=== PATIENT | male | born 1990 | race American Indian/Alaskan Native ===

== ENCOUNTER 2016-07-16 02:43 | Emergency (ER) | payer SELFPAY ==
[2016-07-16 02:52] VITALS: RESP 16
[2016-07-16] MEDS ORDERED: Oxycodone/Acetaminophen 5/325 mg Tab ONE (03:28)
[2016-07-16] MEDS ORDERED: Oxycodone/Acetaminophen 5/325 mg Tab PO STA (03:33)
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
[2016-07-16 06:03] VITALS: BP 122/78; PULSE 92; TEMP 98.3; O2SAT 98
--- NOTE | 2016-07-16 12:32 | RAD ---
PROCEDURE: Radiographs of the Right Forearm HISTORY: Injury COMPARISON: None available. TECHNIQUE: Frontal and lateral views obtained. FINDINGS: BONES: Bone alignment and mineralization are normal. There is no acute fracture or bone destruction JOINT SPACES: Unremarkable. OTHER FINDINGS: None. IMPRESSION: No acute fracture or dislocation.
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
--- NOTE | 2016-07-16 12:34 | RAD ---
PROCEDURE: Right Wrist Radiographs. HISTORY: WRIST PAIN COMPARISON: None. FINDINGS: BONES: Bone alignment and mineralization are normal. The proximal and distal carpal rows are maintained. There is no acute fracture or bone destruction. JOINTS: Normal. SOFT TISSUES: Normal. OTHER FINDINGS: None. IMPRESSION: Normal examination.
== END 2016-07-16 06:03 | disposition home or self-care (01) ==
LOC: H.ER 02:43
DX: S69.91XA Unspecified injury of right wrist, hand and finger(s), initial encounter (principal); Y04.0XXA Assault by unarmed brawl or fight, initial encounter; Y92.89 Other specified places as the place of occurrence of the external cause

== ENCOUNTER 2016-12-19 04:46 | Emergency (ER) | payer MEDICAID ==
[2016-12-19 05:29] VITALS: BMI 32.9
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
[2016-12-19 05:39] VITALS: TEMP 98.1
--- NOTE | 2016-12-19 07:22 | ED PDOC ---
- ECG O2 Sat by Pulse Oximetry: 98 Medical Decision Making Medical Decision Makin:00 Patient signed over to me by Dr. Lincoln Wolfe MD pending X-Ray sending to [facility]. Scribe Attestation: Documented by Tania Ribeiro, acting as a scribe for Patricia Trevino MD. Provider Scribe Attestation: All medical record entries made by the Scribe were at my direction and personally dictated by me. I have reviewed the chart and agree that the record accurately reflects my personal performance of the history, physical exam, medical decision making, and the department course for this patient. I have also personally directed, reviewed, and agree with the discharge instructions and disposition. x-rays read radiologist. no acute fracture. will discharge Disposition Doctor Will See Patient In The: Office Counseled Patient/Family Regarding: Diagnosis, Need For Followup - Clinical Impression Clinical Impression: Upper extremity injury - POA Present On Arrival: Falls Or Trauma - Disposition Referrals: [facility] [Outside] Disposition: Routine/Home Disposition Time: 08:25 Condition: STABLE Instructions: Contusion in Adults (ED) Forms: [employer] (Arabic)
[2016-12-19 07:30] VITALS: BP 133/64; PULSE 64; RESP 18
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
[2016-12-19 08:37] VITALS: O2SAT 98
== END 2016-12-19 08:43 | disposition home or self-care (01) ==
LOC: H.ER 04:46
DX: S59.912A Unspecified injury of left forearm, initial encounter (principal); Y04.0XXA Assault by unarmed brawl or fight, initial encounter; Y92.89 Other specified places as the place of occurrence of the external cause

== ENCOUNTER 2017-04-16 04:03 | Emergency (ER) | payer MEDICAID ==
[2017-04-16 04:34] VITALS: BMI 30.9
[2017-04-16 04:36] VITALS: BP 135/75; PULSE 106; RESP 16; TEMP 98.3; O2SAT 97
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
--- NOTE | 2017-04-16 09:45 | RAD ---
PROCEDURE: Right Hand Radiographs. HISTORY: pain COMPARISON: Right hand radiographs dated 12/19/2016. FINDINGS: BONES: No acute fracture. JOINTS: Unremarkable. SOFT TISSUES: Normal. OTHER FINDINGS: None. IMPRESSION: No demonstrated fracture dislocation.
== END 2017-04-16 06:48 | disposition home or self-care (01) ==
LOC: H.ER 04:03
DX: S63.614A Unspecified sprain of right ring finger, initial encounter (principal); Y04.0XXA Assault by unarmed brawl or fight, initial encounter; Y92.89 Other specified places as the place of occurrence of the external cause

== ENCOUNTER 2017-07-25 10:00 | Emergency (ER) | payer MEDICAID, OTHER ==
[2017-07-25 10:09] VITALS: BMI 25.8
[2017-07-25 10:10] VITALS: RESP 20; O2SAT 98
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
[2017-07-25] MEDS ORDERED: Tdap Vaccine 0.5 ml Vial (10-64 yrs) IM ONE ×2 (11:29→11:50)
--- NOTE | 2017-07-25 11:44 | RAD ---
PROCEDURE: Right Hand Radiographs. HISTORY: Right hand injury COMPARISON: 04/16/2017 FINDINGS: BONES: No acute fracture. Findings suggest healed 5th metacarpal fracture. JOINTS: Normal. No osteoarthritic changes. SOFT TISSUES: Normal. OTHER FINDINGS: None. IMPRESSION: No acute findings related to/accounting for the clinical presentation. No significant interval change compared to the prior examination(s).
[2017-07-25 12:57] VITALS: BP 120/76; PULSE 78; TEMP 98
== END 2017-07-25 12:58 | disposition home or self-care (01) ==
LOC: H.ER 10:00
DX: T81.4XXA Infection following a procedure, initial encounter (principal)

== ENCOUNTER 2017-10-05 02:13 | Emergency (ER) | payer MEDICAID, OTHER ==
[2017-10-05 02:13] VITALS: BMI 25.8
[2017-10-05 02:44] VITALS: RESP 16; O2SAT 100
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
[2017-10-05 04:15] VITALS: BP 135/83; PULSE 79; TEMP 79
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
== END 2017-10-05 04:15 | disposition home or self-care (01) ==
LOC: H.ER 02:13
DX: K08.89 Other specified disorders of teeth and supporting structures (principal)

== ENCOUNTER 2018-01-05 18:16 | Emergency (ER) | payer MEDICAID, OTHER ==
[2018-01-05 18:16] VITALS: BMI 25.8
[2018-01-05 18:42] VITALS: BP 145/75; PULSE 66; RESP 16; TEMP 98.7; O2SAT 99
== END 2018-01-05 20:00 | disposition left against medical advice (07) ==
LOC: H.ER 18:16
DX: Z02.89 Encounter for other administrative examinations (principal)

== ENCOUNTER 2018-05-28 09:57 | Emergency (ER) | payer OTHER ==
[2018-05-28 10:03] VITALS: RESP 18
[2018-05-28 10:04] VITALS: BMI 33.5
[2018-05-28] MEDS ORDERED: Sodium Chloride 0.9% 1,000 ML IV STA (10:33)
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
[2018-05-28 11:13] LABS: BASO % 0.6 % (0.0-2.0); EOS # 0.1 K/uL (0.0-0.7); EOS % 1.2 % (0.0-4.0); LYMPH # 2.6 K/uL (1.0-4.3); LYMPH % 37.1 % (20.0-40.0); MEAN CELL VOLUME 89.6 fl (80.0-94.0); MEAN CORPUSCULAR HEMOGLOBIN 29.6 pg (27.0-31.0); MEAN PLATELET VOLUME 8.7 fl (7.2-11.7); MONO # 0.7 K/uL (0.0-0.8); MONO % 10.6 % (0.0-10.0); NEUT # 3.5 K/uL (1.8-7.0); NEUT % 50.5 % (50.0-75.0); RBC 5.09 Mil/uL (4.40-5.90); RED CELL DISTRIBUTION WIDTH 13.6 % (11.5-14.5); WHITE BLOOD COUNT 6.9 K/uL (4.8-10.8)
[2018-05-28 11:18] LABS: ALB/GLOB RATIO 1.4 (1.0-2.1); ALBUMIN 4.4 g/dL (3.5-5.0); ALT/SGPT 37 U/L (21-72); AST/SGOT 58 U/L (17-59); BLOOD UREA NITROGEN 17 mg/dl (9-20); CALCIUM 9.1 mg/dL (8.4-10.2); GFR NON-AFRICAN AMERICAN > 60
[2018-05-28 12:28] VITALS: BP 109/55; PULSE 78; TEMP 97.6; O2SAT 99
== END 2018-05-28 12:28 | disposition home or self-care (01) ==
LOC: H.ER 09:57
DX: K29.70 Gastritis, unspecified, without bleeding (principal); F17.200 Nicotine dependence, unspecified, uncomplicated; I10 Essential (primary) hypertension
CPT/HCPCS: 80053; 85025; 96374; 96375; 99284; J2405; J7030